=== PATIENT | female | born 1990 | race Caucasian/White ===

== ENCOUNTER → 2024-10-14 10:33 | Outpatient (REF) | payer BC, SELFPAY ==
[2024-10-23 02:04] LABS: HPV, High Risk Not Detected; HPV, High Risk Source Cervical
== END ==
LOC: CPAP 10:33
PROVIDERS: ATTENDING PHYSICIAN Nurse Practitioner Family
DX: Z01.419 Encounter for gynecological examination (general) (routine) without abnormal findings (principal)
CPT/HCPCS: 87624; G0123

== ENCOUNTER → 2025-09-06 13:50 | Outpatient (REF) | payer BC, SELFPAY ==
[2025-09-10 03:59] LABS: Bacterial Vaginosis by TMA Negative; Candida glabrata by TMA Negative; Candida species by TMA Negative; Trichomonas vaginalis by TMA Negative
== END ==
LOC: CLAB 13:50
PROVIDERS: ATTENDING PHYSICIAN Nurse Practitioner Family
DX: N76.0 Acute vaginitis (principal)
CPT/HCPCS: 81513; 87481; 87661

== ENCOUNTER → 2025-11-01 13:16 | Outpatient (REF) | payer BC, SELFPAY | LOC: HWRAD 13:16 | PROVIDERS: ATTENDING PHYSICIAN Nurse Practitioner Family; FAMILY PHYSICIAN Family Medicine | DX: N93.9 Abnormal uterine and vaginal bleeding, unspecified (principal) | CPT/HCPCS: 76830; 76856 ==